=== PATIENT | male | born 1965 | race Caucasian/White ===

== ENCOUNTER 2018-10-05 16:19 | Inpatient (IN) | payer MEDICARE, MEDICAID ==
[~2018-10-05] VITALS: Ht 182.9 cm; Wt 81.6 kg
[~2018-10-05 16:19] MED LIST: BENZ1TAB10 PO; DIVA-78 PO; PALI3 PO; VENL-67 PO
[2018-10-05 18:00] VITALS: BP 103/61
[2018-10-05] MEDS ORDERED: QUEtiapine FUMARATE 100 MG TABLET PO PRN (18:30)
[2018-10-05] MEDS ORDERED: ZOLPIDEM TARTRATE 10 MG TABLET PO PRN (18:30)
[2018-10-05] MEDS: DIVALPROEX SODIUM 500 MG DR TABLET PO SCH (20:28)
[2018-10-05] MEDS: BENZTROPINE MESYLATE 1 MG TABLET PO SCH (20:28)
[2018-10-05] MEDS ORDERED: QUEtiapine FUMARATE 200 MG TABLET PO SCH (21:00)
[2018-10-06] VITALS (9 sets, daily range): BP systolic 104–121; BP diastolic 64–78
[2018-10-06] MEDS: BENZTROPINE MESYLATE 1 MG TABLET PO SCH (08:24)
[2018-10-06 08:56] LABS: BASOPHILS % (AUTO) 0.7 % (0.0-2.0); EOSINOPHILS % (AUTO) 2.6 % (1.0-6.0); HEMATOCRIT 38.3 % (41-53); HEMOGLOBIN 13.1 g/dL (13.5-17.5); LYMPHOCYTES # (AUTO) 1.3 K/uL (1.0-4.8); LYMPHOCYTES % (AUTO) 28.2 % (22.0-44.0); MEAN CORPUSCULAR HEMOGLOBIN 30.2 pg (26.0-34.0); MEAN CORPUSCULAR HGB CONC 34.2 G/dL (31.0-37.0); MEAN CORPUSCULAR VOLUME 88 fL (80-100); MONOCYTES # (AUTO) 0.3 K/uL (0.1-1.0); MONOCYTES % (AUTO) 7.5 % (2.0-9.0); NEUTROPHILS # (AUTO) 2.8 K/uL (1.8-7.7); PLATELET COUNT (AUTO) 154 K/uL (150-450); RED BLOOD CELL COUNT(AUTO) 4.34 MIL/uL (4.50-5.90); RED CELL DISTRIBUTION WIDTH 13.5 % (11.5-14.5)
[2018-10-06 09:12] LABS: HEMOGLOBIN A1C 5.6 % (4.5-6.2)
[2018-10-06 09:47] LABS: ALANINE AMINOTRANSFERASE 31 U/L (12-78); ALKALINE PHOSPHATASE 57 U/L (46-116); ANION GAP 7 mmol/L (8-16); ASPARTATE AMINOTRANSFERASE 31 U/L (15-37); BILIRUBIN,TOTAL 0.6 mg/dL (0.1-1.0); CALCIUM, TOTAL 8.6 mg/dL (8.8-10.5); CARBON DIOXIDE 28 mmol/L (22-29); CHLORIDE 105 mmol/L (98-107); CHOL/HDL RATIO 3.3 (4.2-7.3); CHOLESTEROL 119 mg/dL (131-200); CREATININE 1.01 mg/dL (0.60-1.30); FREE T4 (FREE THYROXINE) 1.51 ng/dL (0.76-1.46); GLOMERULAR FILTR. RATE CALC > 60 mL/min (>60); GLUCOSE,RANDOM 84 mg/dL (70-110); HDL CHOLESTEROL 36 mg/dL (40-60); LDL CHOL (CALC.) 75 mg/dL (0-130); POTASSIUM 4.3 mmol/L (3.5-5.1); SODIUM SERUM 140 mmol/L (136-145); TOTAL PROTEIN, SERUM 6.1 g/dL (6.4-8.2); TRIGLYCERIDES 42 mg/dL (15-150); UREA NITROGEN, BLOOD 18 mg/dL (7-18)
[2018-10-06] MEDS: LORazepam 2 MG TABLET PO PRN (12:31)
[2018-10-06] MEDS ORDERED: MAG HYDROX/AL HYDROX/SIMETH ES 30 ML SUSPENSION UDCUP PO PRN (14:00)
[2018-10-06] MEDS ORDERED: PROMETHAZINE HCL 25 MG TABLET PO PRN (14:00)
[2018-10-06] MEDS ORDERED: PALIPERIDONE PALMITATE 234 MG/1.5 ML SYRINGE IM ONE (14:00)
[2018-10-06] MEDS ORDERED: MAGNESIUM HYDROXIDE SUSPENSION 30 ML UDCUP PO PRN (14:00)
[2018-10-06] MEDS ORDERED: HydrOXYzine PAMOATE 50 MG CAPSULE PO PRN (14:00)
[2018-10-06] MEDS ORDERED: GuaiFENesin/D-METHORPHAN [SUGAR-FREE] 200-20MG/10 ML SYRUP UDCUP PO PRN (14:00)
[2018-10-06] MEDS ORDERED: TUBERCULIN, PURIFIED PROTEIN DERIVATIVE 5 TU/0.1 ML SYG ID ONE (14:00)
[2018-10-06] MEDS ORDERED: CYANOCOBALAMIN 1,000 MCG/ML VIAL IM ONE (14:00)
[2018-10-06] MEDS ORDERED: ACETAMINOPHEN 325 MG TABLET PO PRN (14:00)
[2018-10-06] MEDS ORDERED: LOPERAMIDE HCL 2 MG CAPSULE PO PRN (14:00)
[2018-10-06] MEDS ORDERED: PALIPERIDONE 1.5 MG ER TABLET PO PRN (14:00)
[2018-10-06] MEDS: THIAMINE HCL 100 MG TABLET PO SCH (16:33)
[2018-10-06] MEDS: DIVALPROEX SODIUM 500 MG DR TABLET PO SCH (20:31)
[2018-10-06] MEDS ORDERED: PALIPERIDONE 3 MG ER TABLET PO SCH (21:00)
[2018-10-07] VITALS (8 sets, daily range): BP systolic 106–123; BP diastolic 61–81
[2018-10-07] MEDS: FOLIC ACID 1 MG TABLET PO SCH (08:23)
[2018-10-07] MEDS: THIAMINE HCL 100 MG TABLET PO SCH ×2 (08:23→16:32)
[2018-10-07] MEDS: MULTIVITAMINS WITH MINERALS, THERAPEUTIC TABLET PO SCH (08:23)
[2018-10-07] MEDS: LORazepam 2 MG TABLET PO PRN (16:32)
[2018-10-07] MEDS: ZIPRASIDONE HCL 20 MG CAPSULE PO SCH (16:57)
[2018-10-07] MEDS: DIVALPROEX SODIUM 500 MG DR TABLET PO SCH (22:01)
[2018-10-07] MEDS: AMANTADINE HCL 100 MG CAPSULE PO SCH (22:01)
[2018-10-08 00:33] VITALS: BP 111/70
[2018-10-08 00:35] VITALS: BP 111/70
[2018-10-08] MEDS: ZIPRASIDONE HCL 20 MG CAPSULE PO SCH (06:14)
[2018-10-08 08:04] VITALS: BP 106/72
[2018-10-08] MEDS: MULTIVITAMINS WITH MINERALS, THERAPEUTIC TABLET PO SCH (08:04)
[2018-10-08] MEDS: AMANTADINE HCL 100 MG CAPSULE PO SCH ×3 (08:04→16:35)
[2018-10-08] MEDS: FOLIC ACID 1 MG TABLET PO SCH (08:04)
[2018-10-08] MEDS: THIAMINE HCL 100 MG TABLET PO SCH ×2 (08:04→16:35)
[2018-10-08] MEDS: LORazepam 2 MG TABLET PO PRN (08:04)
[2018-10-08] MEDS: ZIPRASIDONE HCL 40 MG CAPSULE PO SCH (16:35)
[2018-10-08 16:45] VITALS: BP 115/65
[2018-10-08] MEDS: DIVALPROEX SODIUM 500 MG DR TABLET PO SCH (20:32)
[2018-10-09 05:32] VITALS: BP 116/72
[2018-10-09] MEDS: ZIPRASIDONE HCL 40 MG CAPSULE PO SCH (06:45)
[2018-10-09] MEDS: THIAMINE HCL 100 MG TABLET PO SCH ×2 (08:15→16:30)
[2018-10-09] MEDS: FOLIC ACID 1 MG TABLET PO SCH (08:15)
[2018-10-09] MEDS: AMANTADINE HCL 100 MG CAPSULE PO SCH ×3 (08:15→16:30)
[2018-10-09] MEDS: MULTIVITAMINS WITH MINERALS, THERAPEUTIC TABLET PO SCH (08:15)
[2018-10-09 08:17] VITALS: BP 115/64
[2018-10-09] MEDS ORDERED: LOPERAMIDE HCL 2 MG CAPSULE PO PRN (14:00)
[2018-10-09 16:01] VITALS: BP 112/73
[2018-10-09] MEDS: ZIPRASIDONE HCL 20 MG CAPSULE PO SCH (16:29)
[2018-10-09] MEDS ORDERED: ZIPRASIDONE HCL 60 MG CAPSULE PO SCH (17:00)
[2018-10-09] MEDS: DIVALPROEX SODIUM 500 MG DR TABLET PO SCH (20:38)
[2018-10-09] MEDS: LORazepam 2 MG TABLET PO PRN (23:26)
[2018-10-10 01:12] VITALS: BP 106/61
[2018-10-10 06:42] VITALS: BP 106/61
[2018-10-10] MEDS: ZIPRASIDONE HCL 20 MG CAPSULE PO SCH ×2 (06:52→16:11)
[2018-10-10] MEDS: AMANTADINE HCL 100 MG CAPSULE PO SCH ×3 (08:13→16:11)
[2018-10-10] MEDS: MULTIVITAMINS WITH MINERALS, THERAPEUTIC TABLET PO SCH (08:14)
[2018-10-10] MEDS: LORazepam 2 MG TABLET PO PRN (08:14)
[2018-10-10] MEDS: THIAMINE HCL 100 MG TABLET PO SCH ×2 (08:14→16:11)
[2018-10-10] MEDS: FOLIC ACID 1 MG TABLET PO SCH (08:14)
[2018-10-10 08:32] VITALS: BP 114/67
[2018-10-10 08:56] VITALS: BP 114/67
[2018-10-10] MEDS ORDERED: PALIPERIDONE PALMITATE 156 MG/ML SYRINGE IM ONE (09:00)
[2018-10-10 16:03] VITALS: BP 122/68
[2018-10-10 16:15] VITALS: BP 122/68
[2018-10-10] MEDS: DIVALPROEX SODIUM 500 MG DR TABLET PO SCH (20:08)
[2018-10-11 01:06] VITALS: BP 116/68
[2018-10-11] MEDS: ZIPRASIDONE HCL 20 MG CAPSULE PO SCH ×2 (06:38→16:41)
[2018-10-11 06:44] VITALS: BP 103/64
[2018-10-11 08:17] VITALS: BP 135/85
[2018-10-11] MEDS: MULTIVITAMINS WITH MINERALS, THERAPEUTIC TABLET PO SCH (08:22)
[2018-10-11] MEDS: THIAMINE HCL 100 MG TABLET PO SCH ×2 (08:23→16:42)
[2018-10-11] MEDS: LORazepam 2 MG TABLET PO PRN (08:23)
[2018-10-11] MEDS: FOLIC ACID 1 MG TABLET PO SCH (08:23)
[2018-10-11] MEDS: AMANTADINE HCL 100 MG CAPSULE PO SCH ×3 (08:23→16:41)
[2018-10-11 17:28] VITALS: BP 115/64
[2018-10-11] MEDS: DIVALPROEX SODIUM 500 MG DR TABLET PO SCH (20:51)
[2018-10-12 04:43] VITALS: BP 110/68
[2018-10-12] MEDS: ZIPRASIDONE HCL 20 MG CAPSULE PO SCH (06:57)
[2018-10-12 08:17] VITALS: BP 108/67
[2018-10-12] MEDS: AMANTADINE HCL 100 MG CAPSULE PO SCH ×3 (08:43→16:25)
[2018-10-12] MEDS: FOLIC ACID 1 MG TABLET PO SCH (08:43)
[2018-10-12] MEDS: MULTIVITAMINS WITH MINERALS, THERAPEUTIC TABLET PO SCH (08:43)
[2018-10-12] MEDS: THIAMINE HCL 100 MG TABLET PO SCH ×2 (08:43→16:25)
[2018-10-12] MEDS ORDERED: NALT50TA6 PO (15:45)
[2018-10-12] MEDS ORDERED: PALI117D IM (15:45)
[2018-10-12] MEDS ORDERED: DIVA-78 PO (15:45)
[2018-10-12] MEDS ORDERED: AMAN100C12 PO (15:45)
[2018-10-12 16:13] VITALS: BP 113/72
[2018-10-13] MEDS ORDERED: NALTREXONE HCL 50 MG TABLET PO SCH (09:00)
== END 2018-10-12 17:50 | disposition home or self-care (01) | DRG 885 ==
LOC: B2X 18:28
PROVIDERS: ADMIT Psychiatry & Neurology Psychiatry; ATTEND Psychiatry & Neurology Psychiatry
DX: F25.0 Schizoaffective disorder, bipolar type (principal); E44.1 Mild protein-calorie malnutrition; F15.90 Other stimulant use, unspecified, uncomplicated; Z59.0 Homelessness; Z81.8 Family history of other mental and behavioral disorders; Z88.0 Allergy status to penicillin; Z91.14 Patient's other noncompliance with medication regimen; Z91.19 Patient's noncompliance with other medical treatment and regimen; Z88.8 Allergy status to other drugs, medicaments and biological substances; Z71.6 Tobacco abuse counseling; Z68.24 Body mass index [BMI] 24.0-24.9, adult
CPT/HCPCS: 83036; 84439; 84443; 93005; J3420

== ENCOUNTER 2018-11-25 19:12 | Inpatient (IN) | payer MEDICARE, MEDICAID ==
[~2018-11-25] VITALS: Ht 182.9 cm; Wt 83.0 kg
[~2018-11-25 19:12] MED LIST changes: +AMAN100C12 PO; -BENZ1TAB10 PO; +NALT50TA6 PO; +PALI117D IM; -PALI3 PO; -VENL-67 PO
[2018-11-25 21:34] LABS: BASOPHILS % (AUTO) 0.4 % (0.0-2.0); EOSINOPHILS % (AUTO) 0.6 % (1.0-6.0); HEMATOCRIT 37.7 % (41-53); HEMOGLOBIN 12.4 g/dL (13.5-17.5); LYMPHOCYTES # (AUTO) 1.4 K/uL (1.0-4.8); LYMPHOCYTES % (AUTO) 25.2 % (22.0-44.0); MEAN CORPUSCULAR HGB CONC 32.9 G/dL (31.0-37.0); MEAN CORPUSCULAR VOLUME 91 fL (80-100); MONOCYTES # (AUTO) 0.4 K/uL (0.1-1.0); MONOCYTES % (AUTO) 7.3 % (2.0-9.0); NEUTROPHILS # (AUTO) 3.8 K/uL (1.8-7.7); NEUTROPHILS % (AUTO) 66.5 % (40.0-70.0); PLATELET COUNT (AUTO) 173 K/uL (150-450); RED BLOOD CELL COUNT(AUTO) 4.14 MIL/uL (4.50-5.90); RED CELL DISTRIBUTION WIDTH 13.2 % (11.5-14.5)
[2018-11-25] MEDS ORDERED: LORazepam 2 MG/ML VIAL IM ONE (21:45)
[2018-11-25 21:46] LABS: ANION GAP 9 mmol/L (8-16); CALCIUM, TOTAL 8.6 mg/dL (8.8-10.5); CARBON DIOXIDE 25 mmol/L (22-29); CHLORIDE 102 mmol/L (98-107); CREATININE 0.98 mg/dL (0.60-1.30); GLOMERULAR FILTR. RATE CALC > 60 mL/min (>60); GLUCOSE,RANDOM 88 mg/dL (70-110); POTASSIUM 3.7 mmol/L (3.5-5.1); SODIUM SERUM 136 mmol/L (136-145); UREA NITROGEN, BLOOD 16 mg/dL (7-18)
[2018-11-25 21:52] LABS: ALANINE AMINOTRANSFERASE 32 U/L (12-78); ALBUMIN 3.4 g/dL (3.4-5.0); ALKALINE PHOSPHATASE 62 U/L (46-116); ASPARTATE AMINOTRANSFERASE 43 U/L (15-37); BILIRUBIN,TOTAL 0.2 mg/dL (0.1-1.0); TOTAL PROTEIN, SERUM 6.8 g/dL (6.4-8.2)
[2018-11-25] MEDS ORDERED: ZOLPIDEM TARTRATE 10 MG TABLET PO PRN (22:45)
[2018-11-26] MEDS ORDERED: HALOPERIDOL LACTATE 5 MG/ML VIAL IM ONE
[2018-11-26] MEDS ORDERED: DiphenhydrAMINE HCL 50 MG/ML VIAL IM ONE
[2018-11-26 00:53] VITALS: BP 111/76
[2018-11-26 02:41] VITALS: BP 111/76
[2018-11-26 09:36] VITALS: BP 100/62
[2018-11-26] MEDS ORDERED: PALIPERIDONE PALMITATE 234 MG/1.5 ML SYRINGE IM SCH (12:30)
[2018-11-26] MEDS: LORazepam 2 MG TABLET PO PRN (14:55)
[2018-11-26] MEDS: QUEtiapine FUMARATE 100 MG TABLET PO PRN (14:59)
[2018-11-27 06:18] VITALS: BP 97/61
[2018-11-27 08:10] VITALS: BP 120/63
[2018-11-27] MEDS: LORazepam 2 MG TABLET PO PRN ×2 (09:29→20:34)
[2018-11-27] MEDS: QUEtiapine FUMARATE 100 MG TABLET PO PRN ×2 (09:30→20:34)
[2018-11-27 16:39] VITALS: BP 100/58
[2018-11-28 08:03] VITALS: BP 111/59
[2018-11-28] MEDS: LORazepam 2 MG TABLET PO PRN ×2 (08:15→21:00)
[2018-11-28] MEDS: QUEtiapine FUMARATE 100 MG TABLET PO PRN ×2 (08:15→21:00)
[2018-11-28 16:05] VITALS: BP 96/63
[2018-11-29 05:13] VITALS: BP 107/65
[2018-11-29 08:36] VITALS: BP 99/58
[2018-11-29] MEDS ORDERED: PALI234D IM (11:05)
== END 2018-11-29 14:14 | disposition home or self-care (01) | DRG 885 ==
LOC: EMS 19:13 → B3A 23:33
PROVIDERS: ADMIT Psychiatry & Neurology Psychiatry; ATTEND Psychiatry & Neurology Psychiatry
DX: F20.0 Paranoid schizophrenia (principal); F15.90 Other stimulant use, unspecified, uncomplicated; D64.9 Anemia, unspecified; Z88.0 Allergy status to penicillin
CPT/HCPCS: 96372; G0480; J1200; J1630; J2060

== ENCOUNTER 2018-12-10 20:25 | Emergency (ER) | payer MEDICARE, MEDICAID ==
[~2018-12-10] VITALS: Ht 182.9 cm; Wt 84.1 kg
[~2018-12-10 20:25] MED LIST changes: -AMAN100C12 PO; -DIVA-78 PO; -NALT50TA6 PO; -PALI117D IM; +PALI234D IM
[2018-12-10 21:32] LABS: BASOPHILS % (AUTO) 0.8 % (0.0-2.0); EOSINOPHILS % (AUTO) 0.4 % (1.0-6.0); HEMATOCRIT 38.7 % (41-53); LYMPHOCYTES # (AUTO) 1.8 K/uL (1.0-4.8); LYMPHOCYTES % (AUTO) 23.9 % (22.0-44.0); MEAN CORPUSCULAR HEMOGLOBIN 30.2 pg (26.0-34.0); MEAN CORPUSCULAR HGB CONC 33.7 G/dL (31.0-37.0); MEAN CORPUSCULAR VOLUME 90 fL (80-100); MONOCYTES # (AUTO) 0.6 K/uL (0.1-1.0); MONOCYTES % (AUTO) 7.7 % (2.0-9.0); NEUTROPHILS % (AUTO) 67.2 % (40.0-70.0); PLATELET COUNT (AUTO) 257 K/uL (150-450); RED BLOOD CELL COUNT(AUTO) 4.32 MIL/uL (4.50-5.90); RED CELL DISTRIBUTION WIDTH 13.6 % (11.5-14.5)
[2018-12-10 21:49] LABS: ANION GAP 10 mmol/L (8-16); CALCIUM, TOTAL 9.4 mg/dL (8.8-10.5); CARBON DIOXIDE 26 mmol/L (22-29); CHLORIDE 106 mmol/L (98-107); CREATININE 1.19 mg/dL (0.60-1.30); GLOMERULAR FILTR. RATE CALC > 60 mL/min (>60); GLUCOSE,RANDOM 85 mg/dL (70-110); POTASSIUM 4.5 mmol/L (3.5-5.1); SODIUM SERUM 142 mmol/L (136-145); UREA NITROGEN, BLOOD 23 mg/dL (7-18)
[2018-12-10 22:02] LABS: ALANINE AMINOTRANSFERASE 23 U/L (12-78); ALBUMIN 3.8 g/dL (3.4-5.0); ALKALINE PHOSPHATASE 58 U/L (46-116); ASPARTATE AMINOTRANSFERASE 22 U/L (15-37); BILIRUBIN,TOTAL 0.4 mg/dL (0.1-1.0); TOTAL PROTEIN, SERUM 7.2 g/dL (6.4-8.2)
[2018-12-10] MEDS ORDERED: LORazepam 2 MG/ML VIAL IM ONE (22:15)
[2018-12-10] MEDS ORDERED: DiphenhydrAMINE HCL 50 MG/ML VIAL IM ONE (22:15)
[2018-12-10] MEDS ORDERED: HALOPERIDOL LACTATE 5 MG/ML VIAL IM ONE (22:15)
[2018-12-11 05:00] VITALS: BP 112/74
== END 2018-12-11 05:26 | disposition home or self-care (01) ==
LOC: EMS 20:27
DX: R45.1 Restlessness and agitation (principal); F31.9 Bipolar disorder, unspecified; F20.9 Schizophrenia, unspecified; F15.90 Other stimulant use, unspecified, uncomplicated; Z88.0 Allergy status to penicillin; Z88.8 Allergy status to other drugs, medicaments and biological substances
CPT/HCPCS: 36415; 80053; 85025; 96372; 99291; G0480; J1200; J1630; J2060

== ENCOUNTER 2018-12-12 01:15 | Inpatient (IN) | payer MEDICARE, MEDICAID ==
[~2018-12-12] VITALS: Ht 182.9 cm; Wt 80.8 kg
[2018-12-12] MEDS ORDERED: HALOPERIDOL LACTATE 5 MG/ML VIAL IM ONE (02:15)
[2018-12-12] MEDS ORDERED: LORazepam 2 MG/ML VIAL IM ONE (02:15)
[2018-12-12] MEDS ORDERED: DiphenhydrAMINE HCL 50 MG/ML VIAL IM ONE (02:15)
[2018-12-12] MEDS ORDERED: ZOLPIDEM TARTRATE 10 MG TABLET PO PRN (02:15)
[2018-12-12 02:23] LABS: EOSINOPHILS % (AUTO) 0.7 % (1.0-6.0); HEMOGLOBIN 13.1 g/dL (13.5-17.5); LYMPHOCYTES # (AUTO) 1.6 K/uL (1.0-4.8); LYMPHOCYTES % (AUTO) 25.7 % (22.0-44.0); MEAN CORPUSCULAR HEMOGLOBIN 29.9 pg (26.0-34.0); MEAN CORPUSCULAR HGB CONC 32.8 G/dL (31.0-37.0); MEAN CORPUSCULAR VOLUME 91 fL (80-100); MONOCYTES # (AUTO) 0.4 K/uL (0.1-1.0); MONOCYTES % (AUTO) 6.3 % (2.0-9.0); NEUTROPHILS # (AUTO) 4.2 K/uL (1.8-7.7); NEUTROPHILS % (AUTO) 66.3 % (40.0-70.0); PLATELET COUNT (AUTO) 258 K/uL (150-450); RED BLOOD CELL COUNT(AUTO) 4.39 MIL/uL (4.50-5.90); RED CELL DISTRIBUTION WIDTH 13.4 % (11.5-14.5)
[2018-12-12 02:27] LABS: ANION GAP 7 mmol/L (8-16); CARBON DIOXIDE 28 mmol/L (22-29); CHLORIDE 105 mmol/L (98-107); GLOMERULAR FILTR. RATE CALC > 60 mL/min (>60); GLUCOSE,RANDOM 102 mg/dL (70-110); POTASSIUM 4.3 mmol/L (3.5-5.1); SODIUM SERUM 140 mmol/L (136-145); UREA NITROGEN, BLOOD 23 mg/dL (7-18)
[2018-12-12 02:32] LABS: ALANINE AMINOTRANSFERASE 29 U/L (12-78); ALBUMIN 3.6 g/dL (3.4-5.0); ALKALINE PHOSPHATASE 67 U/L (46-116); ASPARTATE AMINOTRANSFERASE 46 U/L (15-37); BILIRUBIN,TOTAL 0.3 mg/dL (0.1-1.0); TOTAL PROTEIN, SERUM 6.9 g/dL (6.4-8.2)
[2018-12-12 03:38] LABS: AMPHET/METH SCREEN,URINE POSITIVE (NEGATIVE); BARBITURATE SCREEN, URINE NEGATIVE (NEGATIVE); BENZODIAZEPINES SCREEN,URINE NEGATIVE (NEGATIVE); CANNABINOID SCREEN,URINE NEGATIVE (NEGATIVE); COCAINE SCREEN,URINE NEGATIVE (NEGATIVE); METHADONE SCREEN, URINE NEGATIVE (NEGATIVE); OPIATE SCREEN,URINE NEGATIVE (NEGATIVE); PHENCYCLIDINE SCREEN,URINE NEGATIVE (NEGATIVE)
[2018-12-12 04:57] VITALS: BP 112/62
[2018-12-12 08:31] VITALS: BP 116/74
[2018-12-12 16:19] VITALS: BP 119/64
[2018-12-13 04:20] VITALS: BP 113/75
[2018-12-13] MEDS: LORazepam 2 MG TABLET PO PRN ×2 (06:51→15:31)
[2018-12-13] MEDS: HALOPERIDOL 5 MG TABLET PO PRN ×2 (06:51→15:31)
[2018-12-13 08:11] VITALS: BP 107/76
[2018-12-13 16:10] VITALS: BP 113/66
[2018-12-14 00:37] VITALS: BP 118/70
[2018-12-14] MEDS: HALOPERIDOL 5 MG TABLET PO PRN ×2 (00:46→05:21)
[2018-12-14] MEDS: LORazepam 2 MG TABLET PO PRN ×3 (05:21→16:48)
[2018-12-14 08:00] VITALS: BP 112/73
[2018-12-14 16:13] VITALS: BP 109/62
[2018-12-15 02:23] VITALS: BP 117/54
[2018-12-15 02:35] VITALS: BP 117/66
[2018-12-15] MEDS: LORazepam 2 MG TABLET PO PRN ×3 (02:48→14:09)
[2018-12-15] MEDS: HALOPERIDOL 5 MG TABLET PO PRN ×3 (02:48→14:09)
[2018-12-15 16:49] VITALS: BP 105/68
[2018-12-16 05:35] VITALS: BP 117/65
[2018-12-16] MEDS: HALOPERIDOL 5 MG TABLET PO PRN (05:48)
[2018-12-16 08:00] VITALS: BP 103/60
[2018-12-16 08:06] LABS: HEMOGLOBIN A1C 5.8 % (4.5-6.2)
[2018-12-16 08:15] LABS: CHOL/HDL RATIO 3.6 (4.2-7.3); FREE T4 (FREE THYROXINE) 1.13 ng/dL (0.76-1.46); THYROID STIMULATING HORMONE 1.05 uIU/mL (0.36-3.74)
[2018-12-16] MEDS: LORazepam 2 MG TABLET PO PRN (08:24)
[2018-12-16 16:11] VITALS: BP 105/68
[2018-12-17 01:11] VITALS: BP 121/86
[2018-12-17] MEDS: HALOPERIDOL 5 MG TABLET PO PRN (05:47)
[2018-12-17 08:24] VITALS: BP 112/58
[2018-12-17] MEDS: LORazepam 2 MG TABLET PO PRN (08:56)
[2018-12-17] MEDS ORDERED: PALIPERIDONE PALMITATE 234 MG/1.5 ML SYRINGE IM ONE (09:00)
[2018-12-17 16:13] VITALS: BP 109/74
[2018-12-18 06:44] VITALS: BP 110/72
[2018-12-18] MEDS: LORazepam 2 MG TABLET PO PRN ×2 (08:02→12:18)
[2018-12-18] MEDS ORDERED: MULTIVITAMINS, THERAPEUTIC TABLET PO SCH (09:00)
[2018-12-18] MEDS ORDERED: FOLIC ACID 1 MG TABLET PO SCH (09:00)
[2018-12-18] MEDS ORDERED: THIAMINE HCL 100 MG TABLET PO SCH (09:00)
[2018-12-18 09:02] VITALS: BP 110/88
[2018-12-18] MEDS: HALOPERIDOL 5 MG TABLET PO PRN (12:18)
[2018-12-18] MEDS ORDERED: DiphenhydrAMINE HCL 50 MG/ML VIAL ONE (12:53)
[2018-12-18] MEDS ORDERED: HALOPERIDOL LACTATE 5 MG/ML VIAL ONE (12:53)
[2018-12-18] MEDS ORDERED: LORazepam 2 MG/ML VIAL ONE (12:53)
[2018-12-18] MEDS ORDERED: DiphenhydrAMINE HCL 50 MG/ML VIAL IM ONE (13:00)
[2018-12-18] MEDS ORDERED: HALOPERIDOL LACTATE 5 MG/ML VIAL IM ONE (13:00)
[2018-12-18] MEDS ORDERED: LORazepam 2 MG/ML VIAL IM ONE (13:00)
[2018-12-18] MEDS ORDERED: PROPRANOLOL HCL 10 MG TABLET PO SCH (13:00)
[2018-12-18 13:20] VITALS: BP 100/65
[2018-12-18] MEDS ORDERED: BENZ2TAB10 PO ×2 (13:36→13:39)
[2018-12-18] MEDS ORDERED: PROP10TA73 PO (13:39)
[2018-12-18] MEDS ORDERED: BENZTROPINE MESYLATE 2 MG TABLET PO SCH (21:00)
== END 2018-12-18 14:36 | disposition still patient (30) | DRG 885 ==
LOC: EMS 01:15 → B2X 02:00
PROVIDERS: ADMIT Psychiatry & Neurology Psychiatry; ATTEND Psychiatry & Neurology Psychiatry
DX: F20.0 Paranoid schizophrenia (principal); D64.9 Anemia, unspecified; F32.9 Major depressive disorder, single episode, unspecified; Z88.0 Allergy status to penicillin; Z88.8 Allergy status to other drugs, medicaments and biological substances; Z79.899 Other long term (current) drug therapy
CPT/HCPCS: 83036; 84439; 84443; 96372; G0480; J1200; J1630; J2060

== ENCOUNTER 2018-12-18 14:29 | Inpatient (IN) | payer MEDICARE, MEDICAID ==
[~2018-12-18 14:29] MED LIST changes: +BENZ2TAB10 PO; +PROP10TA73 PO
[2018-12-18] MEDS ORDERED: ZOLPIDEM TARTRATE 10 MG TABLET PO PRN (14:45)
[2018-12-18] MEDS: PROPRANOLOL HCL 10 MG TABLET PO SCH ×2 (17:04→18:38)
[2018-12-18 17:10] VITALS: BP 100/51
[2018-12-18 20:51] VITALS: BP 131/57
[2018-12-18] MEDS: BENZTROPINE MESYLATE 2 MG TABLET PO SCH (21:13)
[2018-12-19 06:46] VITALS: BP 105/56
[2018-12-19 08:10] VITALS: BP 104/60
[2018-12-19] MEDS: FOLIC ACID 1 MG TABLET PO SCH (08:34)
[2018-12-19] MEDS: MULTIVITAMINS WITH MINERALS, THERAPEUTIC TABLET PO SCH (08:34)
[2018-12-19] MEDS: PROPRANOLOL HCL 10 MG TABLET PO SCH ×3 (08:34→16:08)
[2018-12-19] MEDS: THIAMINE HCL 100 MG TABLET PO SCH (08:34)
[2018-12-19] MEDS: LORazepam 2 MG TABLET PO PRN (13:27)
[2018-12-19 16:06] VITALS: BP 110/63
[2018-12-19] MEDS: HALOPERIDOL 5 MG TABLET PO PRN (16:11)
[2018-12-19] MEDS ORDERED: DiphenhydrAMINE HCL 50 MG/ML VIAL ONE (16:12)
[2018-12-19] MEDS ORDERED: LORazepam 2 MG/ML VIAL ONE (16:12)
[2018-12-19] MEDS ORDERED: HALOPERIDOL LACTATE 5 MG/ML VIAL ONE (16:12)
[2018-12-19] MEDS ORDERED: DiphenhydrAMINE HCL 50 MG/ML VIAL IM ONE (16:15)
[2018-12-19] MEDS ORDERED: HALOPERIDOL LACTATE 5 MG/ML VIAL IM ONE (16:15)
[2018-12-19] MEDS ORDERED: LORazepam 2 MG/ML VIAL IM ONE (16:15)
[2018-12-19 17:00] VITALS: BP 105/62
[2018-12-19] MEDS: QUEtiapine FUMARATE 300 MG TABLET PO SCH (17:58)
[2018-12-19] MEDS: LITHIUM CARBONATE 300 MG CAPSULE PO SCH (17:58)
[2018-12-19] MEDS: DIVALPROEX SODIUM 500 MG DR TABLET PO SCH (17:58)
[2018-12-19] MEDS: BENZTROPINE MESYLATE 2 MG TABLET PO SCH (21:27)
[2018-12-20 04:50] VITALS: BP 105/66
[2018-12-20] MEDS: DIVALPROEX SODIUM 500 MG DR TABLET PO SCH ×2 (08:05→17:12)
[2018-12-20] MEDS: THIAMINE HCL 100 MG TABLET PO SCH (08:05)
[2018-12-20] MEDS: PROPRANOLOL HCL 10 MG TABLET PO SCH ×3 (08:05→17:12)
[2018-12-20] MEDS: LITHIUM CARBONATE 300 MG CAPSULE PO SCH ×2 (08:05→17:12)
[2018-12-20] MEDS: QUEtiapine FUMARATE 300 MG TABLET PO SCH ×2 (08:05→17:12)
[2018-12-20] MEDS: MULTIVITAMINS WITH MINERALS, THERAPEUTIC TABLET PO SCH (08:05)
[2018-12-20] MEDS: FOLIC ACID 1 MG TABLET PO SCH (08:05)
[2018-12-20 08:30] VITALS: BP 110/65
[2018-12-20] MEDS: HALOPERIDOL 5 MG TABLET PO PRN (09:42)
[2018-12-20] MEDS: LORazepam 2 MG TABLET PO PRN (09:42)
[2018-12-20 16:50] VITALS: BP 120/71
[2018-12-20] MEDS: BENZTROPINE MESYLATE 2 MG TABLET PO SCH (21:03)
[2018-12-21 04:21] VITALS: BP 105/66
[2018-12-21 08:16] VITALS: BP 119/74
[2018-12-21] MEDS: FOLIC ACID 1 MG TABLET PO SCH (08:23)
[2018-12-21] MEDS: THIAMINE HCL 100 MG TABLET PO SCH (08:23)
[2018-12-21] MEDS: PROPRANOLOL HCL 10 MG TABLET PO SCH ×3 (08:23→16:50)
[2018-12-21] MEDS: QUEtiapine FUMARATE 300 MG TABLET PO SCH ×2 (08:23→16:50)
[2018-12-21] MEDS: DIVALPROEX SODIUM 500 MG DR TABLET PO SCH ×2 (08:24→16:50)
[2018-12-21] MEDS: MULTIVITAMINS WITH MINERALS, THERAPEUTIC TABLET PO SCH (08:24)
[2018-12-21] MEDS: LORazepam 2 MG TABLET PO PRN ×3 (08:24→17:55)
[2018-12-21] MEDS: LITHIUM CARBONATE 300 MG CAPSULE PO SCH ×2 (08:24→16:50)
[2018-12-21 13:00] VITALS: BP 109/77
[2018-12-21 16:00] VITALS: BP 103/64
[2018-12-21] MEDS: BENZTROPINE MESYLATE 2 MG TABLET PO SCH (20:52)
[2018-12-22 01:44] VITALS: BP 105/63
[2018-12-22] MEDS: LORazepam 2 MG TABLET PO PRN (05:05)
[2018-12-22] MEDS: HALOPERIDOL 5 MG TABLET PO PRN (05:05)
[2018-12-22] MEDS: FOLIC ACID 1 MG TABLET PO SCH (08:47)
[2018-12-22] MEDS: LITHIUM CARBONATE 300 MG CAPSULE PO SCH (08:47)
[2018-12-22] MEDS: MULTIVITAMINS WITH MINERALS, THERAPEUTIC TABLET PO SCH (08:47)
[2018-12-22] MEDS: THIAMINE HCL 100 MG TABLET PO SCH (08:47)
[2018-12-22] MEDS: PROPRANOLOL HCL 10 MG TABLET PO SCH (08:48)
[2018-12-22] MEDS: QUEtiapine FUMARATE 300 MG TABLET PO SCH (08:48)
[2018-12-22] MEDS: DIVALPROEX SODIUM 500 MG DR TABLET PO SCH (08:48)
[2018-12-22] MEDS ORDERED: QUET200T PO (12:47)
[2018-12-22] MEDS ORDERED: DIVA-78 PO (12:48)
[2018-12-22] MEDS ORDERED: LITH300C3 PO (12:49)
[2018-12-22] MEDS ORDERED: PALIPERIDONE PALMITATE 234 MG/1.5 ML SYRINGE IM ONE (13:45)
== END 2018-12-22 14:30 | disposition home or self-care (01) | DRG 885 ==
LOC: B3A 15:19
PROVIDERS: ADMIT Psychiatry & Neurology Psychiatry; ATTEND Psychiatry & Neurology Psychiatry
DX: F20.0 Paranoid schizophrenia (principal); D64.9 Anemia, unspecified; F15.90 Other stimulant use, unspecified, uncomplicated; F19.10 Other psychoactive substance abuse, uncomplicated
CPT/HCPCS: 80074; 87081; J1200; J1630; J2060

== ENCOUNTER 2018-12-29 11:46 | Emergency (ER) | payer MEDICARE, MEDICAID ==
[~2018-12-29] VITALS: Ht 190.5 cm; Wt 81.8 kg
[~2018-12-29 11:46] MED LIST changes: +DIVA-78 PO; +LITH300C3 PO; +QUET200T PO
[2018-12-29 13:19] LABS: BASOPHILS % (AUTO) 0.7 % (0.0-2.0); EOSINOPHILS % (AUTO) 0.5 % (1.0-6.0); HEMATOCRIT 40.3 % (41-53); HEMOGLOBIN 13.4 g/dL (13.5-17.5); LYMPHOCYTES # (AUTO) 1.8 K/uL (1.0-4.8); LYMPHOCYTES % (AUTO) 25.5 % (22.0-44.0); MEAN CORPUSCULAR HEMOGLOBIN 30.1 pg (26.0-34.0); MEAN CORPUSCULAR HGB CONC 33.2 G/dL (31.0-37.0); MEAN CORPUSCULAR VOLUME 90 fL (80-100); MONOCYTES # (AUTO) 0.4 K/uL (0.1-1.0); MONOCYTES % (AUTO) 5.2 % (2.0-9.0); NEUTROPHILS # (AUTO) 4.7 K/uL (1.8-7.7); NEUTROPHILS % (AUTO) 68.1 % (40.0-70.0); PLATELET COUNT (AUTO) 175 K/uL (150-450); RED BLOOD CELL COUNT(AUTO) 4.46 MIL/uL (4.50-5.90); RED CELL DISTRIBUTION WIDTH 13.2 % (11.5-14.5)
[2018-12-29 13:34] LABS: ANION GAP 7 mmol/L (8-16); CARBON DIOXIDE 27 mmol/L (22-29); CHLORIDE 105 mmol/L (98-107); CREATININE 0.89 mg/dL (0.60-1.30); GLOMERULAR FILTR. RATE CALC > 60 mL/min (>60); GLUCOSE,RANDOM 81 mg/dL (70-110); POTASSIUM 3.9 mmol/L (3.5-5.1); SODIUM SERUM 139 mmol/L (136-145); UREA NITROGEN, BLOOD 13 mg/dL (7-18)
[2018-12-29 13:39] LABS: ALANINE AMINOTRANSFERASE 19 U/L (12-78); ALBUMIN 3.8 g/dL (3.4-5.0); ALKALINE PHOSPHATASE 68 U/L (46-116); ASPARTATE AMINOTRANSFERASE 19 U/L (15-37); BILIRUBIN,TOTAL 0.3 mg/dL (0.1-1.0); TOTAL PROTEIN, SERUM 7.4 g/dL (6.4-8.2)
[2018-12-29 14:12] LABS: AMPHET/METH SCREEN,URINE POSITIVE (NEGATIVE); BARBITURATE SCREEN, URINE NEGATIVE (NEGATIVE); BENZODIAZEPINES SCREEN,URINE NEGATIVE (NEGATIVE); CANNABINOID SCREEN,URINE NEGATIVE (NEGATIVE); COCAINE SCREEN,URINE NEGATIVE (NEGATIVE); METHADONE SCREEN, URINE NEGATIVE (NEGATIVE); OPIATE SCREEN,URINE NEGATIVE (NEGATIVE)
[2018-12-29 14:15] LABS: PHENCYCLIDINE SCREEN,URINE NEGATIVE (NEGATIVE)
[2018-12-29] MEDS ORDERED: LORazepam 1 MG TABLET PO ONE (15:15)
[2018-12-29] MEDS ORDERED: HALOPERIDOL 5 MG TABLET PO PRN (19:45)
[2018-12-29] MEDS ORDERED: ZOLPIDEM TARTRATE 10 MG TABLET PO PRN (19:45)
[2018-12-29] MEDS ORDERED: LORazepam 2 MG TABLET PO PRN (19:45)
[2018-12-30 14:52] VITALS: BP 111/74
== END 2018-12-30 15:02 | disposition short-term general hospital (02) ==
LOC: EMS 11:52
DX: F20.9 Schizophrenia, unspecified (principal); F15.10 Other stimulant abuse, uncomplicated; F31.9 Bipolar disorder, unspecified; Z88.0 Allergy status to penicillin; Z88.8 Allergy status to other drugs, medicaments and biological substances
CPT/HCPCS: 36415; 80053; 80307; 85025; 99285; G0480